=== PATIENT | female | born 1940 | race Caucasian/White ===

== ENCOUNTER → 2018-12-30 | Day surgery (SDC) | payer MEDICARE, OTHER ==
[2018-12-27 11:53] LABS: BASOPHILS % (AUTO) 0.3 % (0-1); EOSINOPHILS # (AUTO) 0.1 X10'3 (0-0.9); EOSINOPHILS % (AUTO) 1.9 % (0-6); HEMATOCRIT 35.8 % (35.0-45.0); HEMOGLOBIN 11.9 g/dl (12.0-16.0); LYMPHOCYTES # (AUTO) 1.3 X10'3 (1.1-4.8); LYMPHOCYTES % (AUTO) 29.3 % (21-51); MEAN CORPUSCULAR HEMOGLOBIN 33.2 PG (27.0-31.0); MEAN CORPUSCULAR HGB CONC 33.3 g/dL (33.0-36.5); MEAN CORPUSCULAR VOLUME 99.7 FL (78-98); MEAN PLATELET VOLUME 7.4 FL (7.4-10.4); MONOCYTES # (AUTO) 0.4 X10'3 (0-0.9); MONOCYTES % (AUTO) 8.8 % (2-12); NEUTROPHILS # (AUTO) 2.7 X10'3 (1.8-7.7); NEUTROPHILS % (AUTO) 59.7 % (42-75); PLATELET COUNT 289 X10'3 (140-440); RED BLOOD COUNT 3.59 X10'6 (4.20-5.60); RED CELL DISTRIBUTION WIDTH 15.2 % (11.5-14.5); WHITE BLOOD COUNT 4.5 X10'3 (4.5-11.0)
[2018-12-27 12:06] LABS: ALBUMIN 4.1 G/DL (3.4-5.0); ANION GAP 9 (8-16); BLOOD UREA NITROGEN 25 MG/DL (7-18); BUN/CREATININE RATIO 23.8 (6.6-38.0); CALCIUM 9.2 MG/DL (8.5-10.1); CHLORIDE 102 MMOL/L (99-107); CREATININE 1.05 MG/DL (0.40-0.90); GLUCOSE 94 MG/DL (70-104); POTASSIUM 4.3 MMOL/L (3.5-5.1); SODIUM 138 MMOL/L (135-145); TOTAL CARBON DIOXIDE 27.3 MMOL/L (24-32); eGFR 51 ML/MIN
[2018-12-27 12:09] LABS: PARTIAL THROMBOPLASTIN TIME 30 SECONDS (22-32); PROTHROMBIN TIME 10.1 SECONDS (9.0-12.0)
[~2018-12-30] VITALS: Ht 147.3 cm; Wt 58.1 kg
[~2018-12-30] MED LIST: CITA-278 PO; DAPS100T2 PO; DOXY100C2 PO; EST1T PO; FOLI0.4T2 PO; HYDROcodone/acetaminophen 10/325mg tab PO PRN; HYDROcodone/acetaminophen 5mg/325mg tablet PO PRN; IRON150C13 PO; LIDOcaine 1% (10mg/ml)w/preservative injection 20ml MDV ONE; LORA1TAB PO; LORazepam 0.5 MG tablet PO PRN; OMEG1CAP PO; OXAZEpam 15mg capsule PO PRN; PHEN-893 PO; SYN0.088T PO; TRAM50TA2 PO; acetaminophen 325mg tablet PO PRN; diphenhydrAMINE 25mg capsule PO PRN; iohexol 350MG/ML 100ml bottle IV ONE; morphine 4 MG/ML inj SYRINge IV PRN; nitroGLYCERIN 0.4mg SUBLingual tab SL PRN; normal saline 1000ml 1,000 ML IV SCH; ondansetron/PF 4mg/2ml inj IV PRN; proCHLORperazine 10 MG/2 ml inj IV PRN
--- NOTE | 2018-12-30 00:15 | NUR ---
Patient discharged tonight. All vitals within normal limits. Patient was free of any Hematomas.
[2018-12-30 16:26] VITALS: BP 149/68
--- NOTE | 2018-12-30 21:16 | NUR ---
patient went to acce unit after heart cath.
== END | disposition home or self-care (01) ==
LOC: SSTAY O 14:55
PROVIDERS: ATTEND Internal Medicine Interventional Cardiology
DX: R07.9 Chest pain, unspecified (principal); I10 Essential (primary) hypertension; E03.9 Hypothyroidism, unspecified; Z90.710 Acquired absence of both cervix and uterus; Z98.890 Other specified postprocedural states; Z98.49 Cataract extraction status, unspecified eye; Z82.49 Family history of ischemic heart disease and other diseases of the circulatory system; Z88.1 Allergy status to other antibiotic agents
CPT/HCPCS: 36415; 80048; 85025; 85610; 85730; 93005; 93458; A6257; J1644; J2001; J7030; Q0163; Q9967; A4620; C1760; C1769

== ENCOUNTER 2020-06-27 10:40 | Emergency (ER) | payer MEDICARE, OTHER ==
[~2020-06-27] VITALS: Ht 147.3 cm; Wt 56.8 kg
[~2020-06-27 10:40] MED LIST changes: -CITA-278 PO; +CITA20TA28 PO; -HYDROcodone/acetaminophen 10/325mg tab PO PRN; -HYDROcodone/acetaminophen 5mg/325mg tablet PO PRN; -LIDOcaine 1% (10mg/ml)w/preservative injection 20ml MDV ONE; -LORazepam 0.5 MG tablet PO PRN; -OXAZEpam 15mg capsule PO PRN; -acetaminophen 325mg tablet PO PRN; -diphenhydrAMINE 25mg capsule PO PRN; -iohexol 350MG/ML 100ml bottle IV ONE; -morphine 4 MG/ML inj SYRINge IV PRN; -nitroGLYCERIN 0.4mg SUBLingual tab SL PRN; -normal saline 1000ml 1,000 ML IV SCH; -ondansetron/PF 4mg/2ml inj IV PRN; -proCHLORperazine 10 MG/2 ml inj IV PRN
[2020-06-27] MEDS ORDERED: HYDROcodone/acetaminophen 10/325mg tab PO ONE (11:00)
[2020-06-27] MEDS ORDERED: LORazepam 2 mg/ml vial IM ONE (11:00)
--- NOTE | 2020-06-27 11:41 | NUR ---
PT SLEEPING LAYING SUPINE, RESPERATIONS EVEN AND UNLABORED.
[2020-06-27 12:00] VITALS: BP 145/72
== END 2020-06-27 12:06 | disposition home or self-care (01) ==
LOC: ER 10:41
DX: M79.604 Pain in right leg (principal); G89.29 Other chronic pain; Z98.890 Other specified postprocedural states; Z88.8 Allergy status to other drugs, medicaments and biological substances; Z79.899 Other long term (current) drug therapy
CPT/HCPCS: 96372; 99283; J2060

== ENCOUNTER 2020-07-06 10:21 | Emergency (ER) | payer MEDICARE, OTHER ==
[~2020-07-06] VITALS: Ht 147.3 cm; Wt 57.0 kg
[2020-07-06] MEDS ORDERED: morphine 4 MG/ML inj SYRINge IM ONE ×2 (10:50→12:35)
[2020-07-06] MEDS ORDERED: ondansetron 4mg rapidly disintigrating tab PO ONE ×2 (10:50→12:35)
[2020-07-06] MEDS ORDERED: ORPH100T2 PO (11:57)
--- NOTE | 2020-07-06 13:01 | NUR ---
relieving RN for break, medicated pt per MD order, pt is saying she cannot go home "I cannot take care of myself, I cannot walk, I need to have surgery", pt has appt with PMD on 07/08,
[2020-07-06] MEDS ORDERED: orphenadrine citrate 60mg/2ml inj. IM ONE (13:20)
--- NOTE | 2020-07-06 13:22 | NUR ---
Jeremie BOOGIE at bedside to talk with pt, pt is tearful "I am just tired of this pain", provider to place another order for pain, report to Joy GONZALEZ
[2020-07-06 13:55] VITALS: BP 154/83
== END 2020-07-06 13:57 | disposition home or self-care (01) ==
LOC: ER 10:21
DX: G89.29 Other chronic pain (principal); M54.89 Other dorsalgia; Z98.890 Other specified postprocedural states; Z88.1 Allergy status to other antibiotic agents; Z79.2 Long term (current) use of antibiotics; Z79.899 Other long term (current) drug therapy
CPT/HCPCS: 72100; 73502; 96372; 99284; J2270; J2360

== ENCOUNTER 2020-07-08 21:11 | Emergency (ER) | payer MEDICARE, OTHER ==
[~2020-07-08] VITALS: Ht 147.3 cm; Wt 56.8 kg
[~2020-07-08 21:11] MED LIST changes: +ORPH100T2 PO
[2020-07-08] MEDS ORDERED: HYDROcodone/acetaminophen 10/325mg tab PO ONE (23:10)
[2020-07-09] MEDS ORDERED: ibuprofen tablet 400 MG TABLET PO ONE
[2020-07-09] MEDS ORDERED: ondansetron 4mg rapidly disintigrating tab PO ONE
[2020-07-09] MEDS ORDERED: oxyCODONE/APAP 5-325mg tablet PO ONE
[2020-07-09] MEDS ORDERED: LORazepam 1 MG tablet PO ONE
[2020-07-09 00:21] VITALS: BP 172/94
== END 2020-07-09 00:47 | disposition home or self-care (01) ==
LOC: ER 21:12
DX: M54.10 Radiculopathy, site unspecified (principal); R53.1 Weakness; G89.29 Other chronic pain; Z98.890 Other specified postprocedural states; Z88.8 Allergy status to other drugs, medicaments and biological substances; Z79.899 Other long term (current) drug therapy
CPT/HCPCS: 99284